=== PATIENT | male | born 1970 | race Caucasian/White ===

== ENCOUNTER 2016-11-25 13:42 | Emergency (ER) | payer BC ==
[~2016-11-25] VITALS: Ht 190.5 cm; Wt 133.8 kg
[~2016-11-25 13:42] MED LIST: AZIT250T PO; BUTA1CAP29 PO; FLUT9.9S NS
[2016-11-25 13:59] VITALS: BP 138/82
--- NOTE | 2016-11-25 14:30 | PHYS DOC ---
Past Medical History Past Medical History: No Pertinent History Past Surgical History: No Surgical History Alcohol Use: Occasionally Drug Use: None Adult General Chief Complaint Chief Complaint: KNEE INJURY [facility] HPI Patient is a 46 year old male presents to the emergency department stating that he was walking interested in his right knee. He states that he has pain in the medial part of the knee that radiates down. He states he's taken Aleve for the pain and discomfort with minimal relief. Denies any numbness or tingling down to his toe. Peripheral pulses are 2+ cap refill brisk less than 2 seconds. Patient's able to ambulate with a good steady gait. Review of Systems Review of Systems Constitutional: Denies fever or chills [] Eyes: Denies change in visual acuity, redness, or eye pain [] HENT: Denies nasal congestion or sore throat [] Respiratory: Denies cough or shortness of breath [] Cardiovascular: No additional information not addressed in HPI [] GI: Denies abdominal pain, nausea, vomiting, bloody stools or diarrhea [] : Denies dysuria or hematuria [] Musculoskeletal: Denies back pain. Complaint of right knee pain Integument: Denies rash or skin lesions [] Neurologic: Denies headache, focal weakness or sensory changes [] Endocrine: Denies polyuria or polydipsia [] Allergies Allergies Allergies Coded Allergies Type Severity Reaction Last Updated Verified No Known Drug Allergies 09/18/13 No Physical Exam Physical Exam Constitutional: Well developed, well nourished, no acute distress, non-toxic appearance. [] HENT: Normocephalic, atraumatic, bilateral external ears normal, oropharynx moist, no oral exudates, nose normal. [] Eyes: PERRLA, EOMI, conjunctiva normal, no discharge. [] Neck: Normal range of motion, no tenderness, supple, no stridor. [] Cardiovascular:Heart rate regular rhythm Lungs & Thorax: No respiratory distress noted Skin: Warm, dry, no erythema, no rash. [] Back: No tenderness Extremities: Medial right knee tenderness, no cyanosis, no clubbing, ROM intact , no edema. Patient is able to straighten the leg completely out with no pain or discomfort. Increased discomfort noted with bending the knee. Peripheral pulses are 2+ cap refill brisk less than 2 seconds. Neurologic: Alert and oriented X 3, normal motor function, normal sensory function, no focal deficits noted. [] Psychologic: Affect normal, judgement normal, mood normal. [] Current Patient Data Vital Signs Vital Signs Date Time Temp Pulse Resp B/P (MAP) Pulse Ox O2 Delivery O2 Flow Rate FiO2 11/25/16 13:59 98.5 72 16 96 Room Air 98.5 EKG EKG [] Radiology/Procedures Radiology/Procedures [][facility] [address] [place] [address] IMAGING REPORT Signed PATIENT: SAAD MONTES ACCOUNT: [id number] : 1970 LOCATION: ER AGE: 46 SEX: M EXAM STATUS: REG ER ORD. PHYSICIAN: CYNDY SAGASTUME APRN REASON: right knee pain and dscomfort PROCEDURE: KNEE RIGHT 4V 4 view right knee radiographs 11/25/2016 Clinical history: Twisting injury to the right knee with pain. AP, lateral, oblique and sunrise digital radiographs of the right knee were obtained. Comparison study is dated 06/08/2009. A linear metallic foreign body is seen within the anterior medial soft tissues of the right knee, unchanged. No fracture or dislocation right knee is seen. Mild degenerative changes are seen involving all 3 compartments of the right knee. Impression: No fracture or dislocation of the right knee is seen. DICTATED and SIGNED BY: NIKOLAS AGOSTO MD DATE: 11/25/16 1509 CC: CYNDY SAGASTUME APRN; SAMUEL GRAY MD ~ Course & Med Decision Making Course & Med Decision Making Pertinent Labs and Imaging studies reviewed. (See chart for details) X-rays were negative for any bony abnormalities. Patient was provided with report from radiologist. Patient will be discharged home in stable condition and be placed in a knee immobilizer with recommendations for ice packs on 20 minutes off 20 minutes several times a day elevation as much as possible. Recommended ibuprofen or Aleve for pain and discomfort. He'll be provided with orthopedic name and number to follow up with. Patient agrees with discharge instructions, treatment regimens and follow-up recommendations. Patient's questions were all answered at bedside. [] Dragon Disclaimer Dragon Disclaimer This electronic medical record was generated, in whole or in part, using a voice recognition dictation system. Departure Departure Impression: Primary Impression: Right knee pain Disposition: 01 HOME, SELF-CARE Condition: STABLE Referrals: AMELIA KAMINSKI MD (PCP) RICHARD BEJARANO MD Patient Instructions: Knee Immobilizer, [id number], Knee Pain, [id number], RICE - Routine Care for Injuries, [id number] Additional Instructions: Activity as tolerated. Ibuprofen or Aleve for pain or discomfort. Ice packs on 20 minutes off 20 minutes several times a day. Elevation as which possible. Wear the knee immobilizer today follow-up with orthopedic. Follow-up with orthopedic within the next week. Return back to emergency prior signs symptoms become worse. CYNDY SAGASTUME APRN Nov 25, 2016 14:30
--- NOTE | 2016-11-25 15:15 | RAD ---
4 view right knee radiographs 11/25/2016 Clinical history: Twisting injury to the right knee with pain. AP, lateral, oblique and sunrise digital radiographs of the right knee were obtained. Comparison study is dated 06/08/2009. A linear metallic foreign body is seen within the anterior medial soft tissues of the right knee, unchanged. No fracture or dislocation right knee is seen. Mild degenerative changes are seen involving all 3 compartments of the right knee. Impression: No fracture or dislocation of the right knee is seen.
== END 2016-11-25 15:35 | disposition home or self-care (01) ==
LOC: ER 13:42
DX: M25.561 Pain in right knee (principal)
CPT/HCPCS: 29505; 73564; 99284-25

== ENCOUNTER → 2016-12-03 | Outpatient (CLI) | payer BC ==
[2016-11-25 13:59] VITALS: BP 138/82
--- NOTE | 2016-12-03 09:06 | KCIC ---
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 Findings: 2 views of the orbits are submitted. No metallic foreign body is identified in the region of orbits. Impression: 1. No metallic foreign body is identified in the region of the orbits. Electronically signed by: Gaston Lockhart MD (12/03/2016 9:02 AM) [id number]
--- NOTE | 2016-12-03 12:41 | KCIC ---
MR of the right knee Indication: Right knee pain. Medial pain for 2 weeks. Technique: The standard multiplanar sequences are obtained. Findings: Medial meniscus: Degenerative tear. Lateral meniscus: Intact. Anterior cruciate ligament: Intact Posterior cruciate ligament: Intact Medial collateral ligament: Intact. Iliotibial band: Intact. Posterolateral structures: Fibular collateral ligament, biceps tendon and popliteus tendon are intact. Extensor mechanism: Intact. Fluid: Small joint effusion. Trace fluid in the popliteal fossa. Articular cartilage -patellofemoral joint: No acute defect. -medial compartment: Mild chondromalacia. -lateral compartment:Intact Bones: No significant lesion or acute fracture. Soft tissue: There is some susceptibility artifact at the anteromedial knee. This may be due to metal in the soft tissues. Tiny cyst or ganglion identified at the posteromedial knee. Impression: Medial meniscal tear. Electronically signed by: Randal Solo MD (12/03/2016 12:37 PM) [id number]
== END | disposition home or self-care (01) ==
LOC: KCIC MRI 08:17
PROVIDERS: ATTEND Orthopaedic Surgery
DX: S83.241A Other tear of medial meniscus, current injury, right knee, initial encounter (principal); X58.XXXA Exposure to other specified factors, initial encounter; Y93.89 Activity, other specified; Y92.89 Other specified places as the place of occurrence of the external cause; Y99.8 Other external cause status
CPT/HCPCS: 70030; 73721

== ENCOUNTER 2017-09-11 08:51 | Emergency (ER) | payer BC ==
[2017-09-11] MEDS ORDERED: MORPHINE SULFATE 2 MG/ML DISP.SYRIN. IV (09:00)
[2017-09-11 09:13] LABS: ADD MAN DIFF? NO
[2017-09-11 09:16] LABS: BASO # 0.1 x10^3/uL (0.0-0.2); BASO % 1 % (0-3); EOS # 0.3 x10^3/uL (0.0-0.7); EOS % 3 % (0-3); HEMATOCRIT 45.8 % (39.0-53.0); HEMOGLOBIN 15.6 g/dL (13.0-17.5); LYMPH # 4.2 x10^3/uL (1.0-4.8); LYMPH % 38 % (24-48); MEAN CORPUSCULAR HEMOGLOBIN 29 pg (25-35); MEAN CORPUSCULAR HGB CONC 34 g/dL (31-37); MEAN CORPUSCULAR VOLUME 86 fL (79-100); MONO # 1.2 x10^3/uL (0.0-1.1); MONO % 11 % (0-9); NEUT # 5.2 x10^3uL (1.8-7.7); NEUT % 47 % (31-73); PLATELET COUNT 199 x10^3/uL (140-400); RED BLOOD COUNT 5.34 x10^6/uL (4.30-5.70); RED CELL DISTRIBUTION WIDTH 14.2 % (11.5-14.5)
[2017-09-11] MEDS: HYDROcodone/APAP 5/325MG 1 TAB TABLET PO (09:18)
[2017-09-11] MEDS: diazePAM 5 MG TABLET PO (09:18)
[2017-09-11] MEDS: ONDANSETRON PF 4 MG/2 ML VIAL. IV (09:18)
[2017-09-11] MEDS: ASPIRIN 325 MG TABLET PO (09:18)
[2017-09-11 09:26] LABS: ANION GAP 6 (6-14); BLOOD UREA NITROGEN 17 mg/dL (8-26); BUN/CREATININE RATIO 17 (6-20); CARBON DIOXIDE 25 mmol/L (21-32); CHLORIDE 105 mmol/L (98-107); GFR 80.4; GLUCOSE 115 mg/dL (70-99); POTASSIUM 4.3 mmol/L (3.5-5.1); SODIUM 136 mmol/L (136-145)
[2017-09-11 09:29] LABS: PROTHROMBIN TIME PATIENT 12.5 SEC (11.7-14.0)
[2017-09-11 09:30] LABS: ETHANOL < 10 mg/dL (0-10)
[2017-09-11 09:32] LABS: ALBUMIN 4.1 g/dL (3.4-5.0); ALK PHOS 120 U/L (46-116); ALT (SGPT) 497 U/L (16-63); AST (SGOT) 312 U/L (15-37); MAGNESIUM 2.4 mg/dL (1.8-2.4); TOTAL BILIRUBIN 0.5 mg/dL (0.2-1.0); TOTAL PROTEIN 8.1 g/dL (6.4-8.2)
[2017-09-11 09:33] LABS: TROPONINI < 0.017 ng/mL (0.000-0.055)
[2017-09-11 09:39] LABS: CKMB INDEX 0.5 % (0-4); CKMB MASS 2.5 ng/mL (0.0-3.6); CREATINE KINASE 456 U/L (39-308)
[2017-09-11 09:39] LABS: NT-PRO BNP 10 pg/mL (0-124)
[2017-09-11] MEDS: MORPHINE SULFATE 4 MG/ML DISP.SYRIN. IV (09:42)
[2017-09-11] MEDS: IV NORMAL SALINE 1000ML BAG 1,000 ML IV (09:46)
[2017-09-11 10:26] LABS: LIPASE 173 U/L (73-393)
[2017-09-11 10:58] LABS: BILIRUBIN,URINE NEGATIVE (NEG); CLARITY,URINE CLEAR; COLOR,URINE YELLOW; GLUCOSE,URINE NEGATIVE (NEG); NITRITE,URINE NEGATIVE (NEG); PROTEIN,URINE NEGATIVE (NEG-TRACE); UROBILINOGEN,URINE 0.2 mg/dL (0.2 mg/dL)
[2017-09-11 11:05] LABS: BACTERIA,URINE 0 /HPF (0-FEW); BARBITURATES NEG (NEG); BENZODIAZEPINES NEG (NEG); CANNABINOIDS NEG (NEG); COCAINE NEG (NEG); METHADONE NEG (NEG); OPIATES POS (NEG); PHENCYCLIDINE NEG (NEG); RBC,URINE OCC /HPF (0-2); WBC,URINE OCC /HPF (0-4)
[2017-09-11 11:07] LABS: AMPHETAMINE/METHAMPHETAMINE NEG (NEG); ETHANOL, URINE NEG (NEG)
== END 2017-09-11 12:30 | disposition home or self-care (01) ==
LOC: ER 08:51
DX: M54.12 Radiculopathy, cervical region (principal); R74.8 Abnormal levels of other serum enzymes; R61 Generalized hyperhidrosis
CPT/HCPCS: 36415; 71045; 72040; 76700; 80053; 80307; 81001; 82553; 83690; 83735; 83880; 84484; 85025; 85379; 85610; 93005; 96374; 96375; 99285-25; G0480; J2270; J2405; J7030

== ENCOUNTER → 2017-09-23 | Outpatient (CLI) | payer BC | END | disposition home or self-care (01) | LOC: KCIC MRI 10:57 | DX: Z13.5 Encounter for screening for eye and ear disorders (principal); M48.02 Spinal stenosis, cervical region | CPT/HCPCS: 70030; 72141 ==

== ENCOUNTER 2018-03-27 17:11 | Emergency (ER) | payer BC ==
[~2018-03-27] VITALS: Ht 193 cm; Wt 140.6 kg
[~2018-03-27 17:11] MED LIST changes: +CYCL10TA2 PO; +METH4TAB2 PO; +NAPR-514 PO
[2018-03-27] MEDS ORDERED: KETOROLAC 30 MG/ML VIAL. IV ONE (17:45)
[2018-03-27] MEDS ORDERED: IV NORMAL SALINE 1000ML BAG 1,000 ML IV ONE (17:45)
[2018-03-27] MEDS ORDERED: ACETAMINOPHEN 500 MG TABLET PO ONE (17:45)
[2018-03-27 18:07] LABS: INFLUENZA A PATIENT NEGATIVE (NEGATIVE); INFLUENZA B PATIENT NEGATIVE (NEGATIVE)
[2018-03-27 18:34] LABS: BASO % 0 % (0-3); EOS % 0 % (0-3); HEMATOCRIT 42.3 % (39.0-53.0); HEMOGLOBIN 14.9 g/dL (13.0-17.5); LYMPH % 10 % (24-48); MEAN CORPUSCULAR HEMOGLOBIN 30 pg (25-35); MEAN CORPUSCULAR HGB CONC 35 g/dL (31-37); MEAN CORPUSCULAR VOLUME 86 fL (79-100); MONO # 0.8 x10^3/uL (0.0-1.1); MONO % 8 % (0-9); NEUT # 8.1 x10^3uL (1.8-7.7); NEUT % 81 % (31-73); PLATELET COUNT 165 x10^3/uL (140-400); RED BLOOD COUNT 4.93 x10^6/uL (4.30-5.70); RED CELL DISTRIBUTION WIDTH 14.2 % (11.5-14.5)
[2018-03-27 18:35] LABS: BILIRUBIN,URINE SMALL (NEG); CLARITY,URINE CLEAR; COLOR,URINE YELLOW; NITRITE,URINE NEGATIVE (NEG); PROTEIN,URINE NEGATIVE (NEG-TRACE)
[2018-03-27 18:42] LABS: CALCIUM 8.4 mg/dL (8.5-10.1); CREATININE 1.1 mg/dL (0.7-1.3); GFR 71.8; POTASSIUM 3.5 mmol/L (3.5-5.1)
[2018-03-27 18:48] LABS: ALBUMIN 3.7 g/dL (3.4-5.0); DIRECT BILIRUBIN 0.1 mg/dL (0.0-0.2); TOTAL BILIRUBIN 0.6 mg/dL (0.2-1.0); TOTAL PROTEIN 7.2 g/dL (6.4-8.2)
[2018-03-27 18:54] LABS: BACTERIA,URINE 0 /HPF (0-FEW)
[2018-03-27 19:30] VITALS: BP 111/55
--- NOTE | 2018-03-27 19:34 | PHYS DOC ---
Past Medical History Past Medical History: No Pertinent History Past Surgical History: No Surgical History Alcohol Use: Occasionally Drug Use: None Adult General Chief Complaint Chief Complaint: ABDOMINAL PAIN HPI HPI Patient is a 47 year old male who presents with general body aches. Patient had sudden onset of diffuse myalgias earlier today. He also felt generally weak all day. He had some nausea and diminished by mouth intake. He did not have diarrhea or vomiting. He does not have specific abdominal pain. Rather, he describes diffuse body aches. He did not have any cough but has had some upper airway congestion that started over the recent couple of days. Denies history of chronic health conditions. Review of Systems Review of Systems Constitutional: + chills Eyes: Denies change HENT: Denies nasal congestion or sore throat Respiratory: Denies cough or shortness of breath Cardiovascular: No additional information not addressed in HPI GI: Denies abdominal pain : Denies Musculoskeletal: Denies back pain Integument: Denies rash Endocrine: Denies polyuria All other systems were reviewed and found to be within normal limits, except as documented in this note. Current Medications Current Medications Current Medications Medications (Trade) Dose Ordered Sig/Rex Start Time Stop Time Status Last Admin Dose Admin Acetaminophen (Tylenol) 1,000 mg 1X ONCE 03/27/18 17:45 03/27/18 17:46 DC 03/27/18 17:54 1,000 MG Ketorolac Tromethamine (Toradol 30mg Vial) 30 mg 1X ONCE 03/27/18 17:45 03/27/18 17:46 DC 03/27/18 17:54 30 MG Sodium Chloride 1,000 ml @ 1,000 mls/hr 1X ONCE 03/27/18 17:45 03/27/18 18:44 DC 03/27/18 17:45 1,000 MLS/HR Allergies Allergies Allergies Coded Allergies Type Severity Reaction Last Updated Verified No Known Drug Allergies 09/18/13 No Physical Exam Physical Exam Constitutional: Well developed, well nourished, no acute distress HENT: Normocephalic, atraumatic, bilateral external ears normal Eyes: PERRLA, EOMI, conjunctiva normal Neck: Normal range of motion Cardiovascular: mildly tachy Heart rate regular rhythm Lungs & Thorax: Bilateral breath sounds clear Abdomen: Bowel sounds normal, soft Skin: Warm, dry Neurologic: Alert and oriented X 3 Psychologic: Affect normal Current Patient Data Vital Signs Vital Signs Date Time Temp Pulse Resp B/P (MAP) Pulse Ox O2 Delivery O2 Flow Rate FiO2 03/27/18 17:31 100.1 110 14 145/67 (93) 95 Room Air 100.1 Lab Values Laboratory Tests Test 03/27/18 17:29 03/27/18 17:43 03/27/18 17:44 Urine Collection Type Unknown Urine Color Yellow Urine Clarity Clear Urine pH 6.0 Urine Specific [place] >=1.030 Urine Protein Negative mg/dL (NEG-TRACE) Urine Glucose (UA) Negative mg/dL (NEG) Urine Ketones (Stick) Negative mg/dL (NEG) Urine Blood Negative (NEG) Urine Nitrite Negative (NEG) Urine Bilirubin Small (NEG) Urine Urobilinogen Dipstick 1.0 mg/dL (0.2 mg/dL) Urine Leukocyte Esterase Negative (NEG) Urine RBC 3-5 /HPF (0-2) Urine WBC 1-4 /HPF (0-4) Urine Bacteria 0 /HPF (0-FEW) Urine Mucus Marked /LPF White Blood Count 10.0 x10^3/uL (4.0-11.0) Red Blood Count 4.93 x10^6/uL (4.30-5.70) Hemoglobin 14.9 g/dL (13.0-17.5) Hematocrit 42.3 % (39.0-53.0) Mean Corpuscular Volume 86 fL (79-100) Mean Corpuscular Hemoglobin 30 pg (25-35) Mean Corpuscular Hemoglobin Concent 35 g/dL (31-37) Red Cell Distribution Width 14.2 % (11.5-14.5) Platelet Count 165 x10^3/uL (140-400) Neutrophils (%) (Auto) 81 % (31-73) H Lymphocytes (%) (Auto) 10 % (24-48) L Monocytes (%) (Auto) 8 % (0-9) Eosinophils (%) (Auto) 0 % (0-3) Basophils (%) (Auto) 0 % (0-3) Neutrophils # (Auto) 8.1 x10^3uL (1.8-7.7) H Lymphocytes # (Auto) 1.0 x10^3/uL (1.0-4.8) Monocytes # (Auto) 0.8 x10^3/uL (0.0-1.1) Eosinophils # (Auto) 0.0 x10^3/uL (0.0-0.7) Basophils # (Auto) 0.0 x10^3/uL (0.0-0.2) Sodium Level 137 mmol/L (136-145) Potassium Level 3.5 mmol/L (3.5-5.1) Chloride Level 102 mmol/L (98-107) Carbon Dioxide Level 26 mmol/L (21-32) Anion Gap 9 (6-14) Blood Urea Nitrogen 17 mg/dL (8-26) Creatinine 1.1 mg/dL (0.7-1.3) Estimated GFR (Cockcroft-Gault) 71.8 Glucose Level 121 mg/dL (70-99) H Calcium Level 8.4 mg/dL (8.5-10.1) L Total Bilirubin 0.6 mg/dL (0.2-1.0) Direct Bilirubin 0.1 mg/dL (0.0-0.2) Aspartate Amino Transferase (AST) 22 U/L (15-37) Alanine Aminotransferase (ALT) 46 U/L (16-63) Alkaline Phosphatase 85 U/L (46-116) Creatine Kinase 228 U/L (39-308) Total Protein 7.2 g/dL (6.4-8.2) Albumin 3.7 g/dL (3.4-5.0) Lipase 96 U/L (73-393) Influenza Type A Antigen Negative (NEGATIVE) Influenza Type B Antigen Negative (NEGATIVE) Laboratory Tests 03/27/18 17:43 Laboratory Tests 03/27/18 17:43 EKG EKG [] Radiology/Procedures Radiology/Procedures [] Course & Med Decision Making Course & Med Decision Making Pertinent Labs and Imaging studies reviewed. (See chart for details) Luis E waited in the emergency department for likely influenza. This is based on his history of present illness and presentation. He was noted to be mildly tachycardic on arrival to the ER. He was given 1 L of normal saline along with some Toradol and Tylenol. The patient felt much improved. Incidentally, his influenza screening test was negative so some baseline labs were completed but there were no acute findings. Suspect this patient to be positive for influenza despite negative testing. By the end of the ED course, the patient was feeling much improved. He was requesting discharge home. He was advised to come back to the ER for any new or worsening symptoms. Otherwise, rest at home and push fluids and take Tylenol and ibuprofen as needed for pain. All of his questions were answered prior to discharge home. Dragon Disclaimer Dragon Disclaimer This electronic medical record was generated, in whole or in part, using a voice recognition dictation system. Departure Departure Impression: Primary Impression: Influenza Disposition: 01 HOME, SELF-CARE Condition: GOOD Patient Instructions: Influenza, Adult JALEN SHORE DO Mar 27, 2018 19:34
== END 2018-03-27 19:42 | disposition home or self-care (01) ==
LOC: ER 17:11
DX: J11.1 Influenza due to unidentified influenza virus with other respiratory manifestations (principal); R00.0 Tachycardia, unspecified
CPT/HCPCS: 36415; 80048; 80076; 81001; 82550; 83690; 85025; 87804; 96374; 99283; J1885; J7030; 96361